=== PATIENT | female | born 1990 | race Two or more races ===

== ENCOUNTER 2018-10-24 10:15 | Observation (INO) | payer MEDICAID, OTHER ==
[~2018-10-24] VITALS: Ht 160 cm; Wt 65.8 kg
[2018-10-24] MEDS ORDERED: PREN-96 PO (12:15)
[2018-10-24] MEDS ORDERED: BETAMETHASONE ACET (6MG/ML) 5ML VIAL IM ONE (14:15)
== END 2018-10-24 14:35 | disposition home or self-care (01) | DRG 566 ==
LOC: LDRP 10:15
PROVIDERS: ADMIT Specialist; ATTEND Specialist
DX: O41.03X0 Oligohydramnios, third trimester, not applicable or unspecified (principal); O36.8130 Decreased fetal movements, third trimester, not applicable or unspecified; Z3A.35 35 weeks gestation of pregnancy
CPT/HCPCS: 59025; 76801; 76815; 76818; 81002; 96372; G0378; J0702

== ENCOUNTER 2018-10-25 19:33 | Observation (INO) | payer MEDICAID ==
[~2018-10-25] VITALS: Ht 160 cm; Wt 65.3 kg
[~2018-10-25 19:33] MED LIST: PREN-96 PO
[2018-10-25] MEDS ORDERED: BETAMETHASONE ACET (6MG/ML) 5ML VIAL IM ONE (19:45)
== END 2018-10-25 21:21 | disposition home or self-care (01) | DRG 566 ==
LOC: LDRP 19:33
PROVIDERS: ADMIT Specialist; ATTEND Specialist
DX: O99.113 Other diseases of the blood and blood-forming organs and certain disorders involving the immune mechanism complicating pregnancy, third trimester (principal); Z3A.38 38 weeks gestation of pregnancy
CPT/HCPCS: 59025; 76818; 81002; 96372; G0378

== ENCOUNTER 2018-10-26 17:05 | Observation (INO) | payer MEDICAID | END 2018-10-26 20:55 | disposition home or self-care (01) | DRG 861 | LOC: LDRP 17:05 | PROVIDERS: ADMIT Specialist; ATTEND Specialist | DX: Z34.93 Encounter for supervision of normal pregnancy, unspecified, third trimester (principal); Z3A.35 35 weeks gestation of pregnancy | CPT/HCPCS: 59025; 76818; 81002; G0378; 96361; 96366 ==

== ENCOUNTER 2018-10-27 09:55 | Observation (INO) | payer MEDICAID | END 2018-10-27 11:45 | disposition home or self-care (01) | DRG 566 | LOC: LDRP 09:55 | PROVIDERS: ADMIT Specialist; ATTEND Specialist | DX: O41.03X0 Oligohydramnios, third trimester, not applicable or unspecified (principal); Z3A.35 35 weeks gestation of pregnancy | CPT/HCPCS: 59025; 76818; 81002; G0378 ==

== ENCOUNTER 2018-10-30 15:03 | Observation (INO) | payer MEDICAID | END 2018-10-30 17:05 | disposition home or self-care (01) | DRG 566 | LOC: LDRP 15:03 | PROVIDERS: ADMIT Specialist; ATTEND Specialist | DX: O41.03X0 Oligohydramnios, third trimester, not applicable or unspecified (principal); Z3A.36 36 weeks gestation of pregnancy | CPT/HCPCS: 59025; 76818; 81002; G0378 ==

== ENCOUNTER 2018-10-31 12:45 | Observation (INO) | payer MEDICAID | END 2018-10-31 14:30 | disposition home or self-care (01) | DRG 566 | LOC: LDRP 12:45 | PROVIDERS: ADMIT Specialist; ATTEND Specialist | DX: O26.893 Other specified pregnancy related conditions, third trimester (principal); Z3A.32 32 weeks gestation of pregnancy | CPT/HCPCS: 59025; 76818; 81002; G0378 ==

== ENCOUNTER 2018-11-02 11:20 | Inpatient (IN) | payer MEDICAID ==
[~2018-11-02] VITALS: Ht 162.6 cm; Wt 65.3 kg
[2018-11-02] MEDS ORDERED: LACTATED RINGER'S 1,000 ML IV ONE ×2 (13:15)
[2018-11-02 13:52] LABS: Hematocrit 35.4 % (36.0-46.0); Hemoglobin 11.9 g/dL (12.2-16.2); Mean Corpuscular Hemoglobin 30.1 pg (28.0-32.0); Mean Corpuscular Hgb Conc. 33.6 g/dL (32.0-36.0); Mean Corpuscular Volume 89.5 fL (80.0-100.0); Platelet Count (auto) 227 10^3/uL (140-450); Red Blood Cells 3.95 10^6/uL (4.0-5.20); Red Cell Distribution Width 13.1 % (11.8-14.3); White Blood Cell 8.9 10^3/uL (4.4-10.8)
[2018-11-02 14:02] LABS: INR 0.83 (0.9-1.15); Partial Thromboplastin Time 26.2 sec (23.78-33.04)
[2018-11-02 14:07] LABS: Band Neutrophils % (manual) 0
[2018-11-02 14:08] LABS: Basophils % (manual) 0 (0.0-2.0); Blast Cells 0; Metamyelocytes % 0; Myelocytes % 0; Promyelocytes % 0; Reactive Lymphocytes 0
[2018-11-02 14:15] LABS: Albumin 2.5 g/dL (3.4-5.0); Calcium 8.5 mg/dL (8.5-10.1); Potassium 4.5 mmol/L (3.5-5.1)
[2018-11-02 14:19] LABS: BUN/Creatinine Ratio 22.8; Bilirubin, Total 0.2 mg/dL (0.2-1.0); Total Protein 6.6 g/dL (6.4-8.2)
[2018-11-02 14:21] LABS: Eosinophils % (manual) 1 (0-7); Lymphocytes % (manual) 20 (10.0-50.0); Monocytes % (manual) 11 (0-12)
[2018-11-02 15:34] LABS: Urine Bacteria FEW /hpf (None Seen); Urine Blood Negative /uL (Negative); Urine Specific Gravity 1.004 (1.001-1.035); Urine WBC 1 /hpf (0 - 5)
[2018-11-02 15:42] LABS: Alcohol, Urine < 3.0 mg/dL (0-5); Amphetamine Screen, Urine NEGATIVE (NEGATIVE); Barbiturate Scree,Urine NEGATIVE (NEGATIVE); Benzodiazephine Screen, Urine NEGATIVE (NEGATIVE); Cannabinoid Screen, Urine NEGATIVE (NEGATIVE); Cocaine Screen, Urine NEGATIVE (NEGATIVE); Opiate Scree,Urine NEGATIVE (NEGATIVE); Phencyclidine Screen, Urine NEGATIVE (NEGATIVE)
[2018-11-02] MEDS ORDERED: LACT. RINGERS/OXYTOCIN 20UNITS 1,000 ML IV SCH (15:51)
[2018-11-02] MEDS ORDERED: LIDOCAINE 2%HCL (LOCAL ANESTH.) INJ 20ML MDV ID ONE (16:00)
[2018-11-02] MEDS ORDERED: PHISODERM TOP SOLN 240ML BTL TOP PRN (16:00)
[2018-11-02] MEDS ORDERED: WITCH HAZEL-GLYCERIN PAD TOP PRN (16:00)
[2018-11-02] MEDS ORDERED: NALBUPHINE HCL 10 MG/1ml INJECTION IV PRN (16:00)
[2018-11-02] MEDS ORDERED: PENICILLIN G POT 5MIL/D5 50ML 50 ML IV ONE (16:00)
[2018-11-02] MEDS ORDERED: METHYLERGONOVINE MALEATE 0.2 MG/ML AMP IM PRN (16:00)
[2018-11-02] MEDS ORDERED: DERMOPLAST 60ML BOTTLE TOP PRN (16:00)
[2018-11-02] MEDS ORDERED: TERBUTALINE SULFATE 1 MG/ML 1ML VIAL SC ONE (16:41)
[2018-11-02] MEDS ORDERED: METOCLOPRAMIDE HCL 5MG/ml INJ 2ml VIAL ONE (17:14)
[2018-11-02] MEDS ORDERED: ONDANSETRON HCL 4 MG/2 ML VIAL ONE (17:15)
[2018-11-02] MEDS ORDERED: ePHEDrine SULFATE 50 MG/ML AMP ONE (17:15)
[2018-11-02] MEDS ORDERED: DEXAMETHASONE SOD PHOS 10MG/1ML VIAL INJ ONE (17:15)
[2018-11-02] MEDS ORDERED: MORPHINE SULF(PF) 0.5MG/ML 10ML VIAL ONE (17:16)
[2018-11-02] MEDS ORDERED: LIDOCAINE HCL 2 %PF INJ 10ML AMP IJ ONE (17:17)
[2018-11-02] MEDS ORDERED: fentaNYL CITRATE 100 MCG/2 ML VL ONE (17:18)
[2018-11-02] MEDS ORDERED: HYDROmorphone HCL 2 MG/ML VL IV PRN ×3 (17:45→19:15)
[2018-11-02] MEDS ORDERED: ePHEDrine SULFATE 50 MG/ML AMP IV PRN (17:45)
[2018-11-02] MEDS ORDERED: diphenhdrAMINE HCL 50 MG/1 ML VL IV PRN (17:45)
[2018-11-02] MEDS ORDERED: ONDANSETRON HCL 4 MG/2 ML VIAL IV ONE (17:45)
[2018-11-02] MEDS ORDERED: LABETALOL HCL 5 MG/ML 4ML SYRINGE IV PRN (17:45)
[2018-11-02] MEDS ORDERED: ONDANSETRON HCL 4 MG/2 ML VIAL IV PRN ×2 (17:45→19:15)
[2018-11-02] MEDS ORDERED: NALOXONE HCL 0.4 MG/ML VIAL IV PRN (17:45)
[2018-11-02] MEDS ORDERED: OXYTOCIN 10 UNIT/ML 10ML VIAL ONE (18:25)
[2018-11-02] MEDS ORDERED: ceFAZolin 1GM/50ML 50 ML IV SCH (19:15)
[2018-11-02] MEDS: LACTATED RINGER'S 1,000 ML IV SCH (19:58)
[2018-11-02] MEDS ORDERED: PENICILLIN G POTASSIUM 2,500,000 UNITS in D5W 5% 50 ML IV SCH (20:00)
--- NOTE | 2018-11-02 20:05 | NUR ---
Post Op for LDRP: Received patient from PACU via bed to room . Patient A/A/Ox4, abdominal binder and bilateral SCD's are in place, IV fluids placed on pump and infusing per order, incisional site dressing clean/dry/intact and Ya Catheter to gravity draining clear yellow urine. Incentive Spirometer at bedside and instruction on proper use with return demonstration done by patient.
[2018-11-02 20:10] VITALS: BP 126/73
[2018-11-02 21:30] VITALS: BP 125/88
[2018-11-02 22:30] VITALS: BP 127/76
[2018-11-02 23:30] VITALS: BP 135/93
[2018-11-03] VITALS (10 sets, daily range): BP systolic 107–142; BP diastolic 63–90
[2018-11-03] MEDS: KETOROLAC TROMETH 30 MG/ML 1ML VIAL IV SCH ×2 (00:08→06:02)
[2018-11-03] MEDS: LACTATED RINGER'S 1,000 ML IV SCH ×2 (00:13→11:20)
[2018-11-03] MEDS: ceFAZolin 1GM/50ML 50 ML IV SCH ×3 (03:43→19:47)
[2018-11-03 07:06] LABS: RPR Non Reactive (Non Reactive)
--- NOTE | 2018-11-03 08:36 | NUR ---
Ambulation: Patient OOB with standby assistance by RN. Patient ambulated to chair with steady gait. Clean gown provided and bed linen changed. Patient ambulated back to bed with steady gait and no distress noted.
[2018-11-03 09:10] LABS: Basophils # (auto) 0.1 uL; Basophils % (auto) 0.4 % (0.0-2.0); Eosinophils # (auto) 0 uL; Hematocrit 31.4 % (36.0-46.0); Hemoglobin 10.3 g/dL (12.2-16.2); Lymphocytes # (auto) 1.5 uL; Mean Corpuscular Hemoglobin 29.7 pg (28.0-32.0); Mean Corpuscular Hgb Conc. 32.9 g/dL (32.0-36.0); Mean Corpuscular Volume 90.3 fL (80.0-100.0); Monocytes # (auto) 0.7 uL; Monocytes % (auto) 3.8 % (0.0-12.0); Neutrophils # (auto) 16.6 uL; Neutrophils % (auto) 87.8 % (37.0-80.0); Platelet Count (auto) 231 10^3/uL (140-450); Red Blood Cells 3.47 10^6/uL (4.0-5.20); Red Cell Distribution Width 13.2 % (11.8-14.3); White Blood Cell 18.9 10^3/uL (4.4-10.8)
--- NOTE | 2018-11-03 09:47 | NUR ---
Ya catheter dc'd Ya dc'd with clean technique following deflation of balloon. Patient tolerated well with no complaints of pain. Continue care.
--- NOTE | 2018-11-03 11:36 | NUR ---
Dr. Meek reviewed blood sugars, orders received to discontinue blood sugar checks at this time.
[2018-11-03] MEDS ORDERED: HYDROcodone-ACET 5/325MG TAB PO PRN (12:00)
[2018-11-03] MEDS ORDERED: BISACODYL 10 MG RECT SUPP PR PRN (12:00)
[2018-11-03] MEDS ORDERED: SIMETHICONE 80 MG CHEWABLE TABLET PO PRN (12:00)
[2018-11-03] MEDS: IBUPROFEN 800 MG TAB PO PRN (17:22)
--- NOTE | 2018-11-03 19:00 | NUR ---
DRESSING TO LOWER ABDOMINAL INCISION REMOVED DRESSING TO LOWER ABDOMINAL INCISION REMOVED. INCISION CLEAN, DRY AND WELL APPROXIMATED WITH 12 PAOLA PRESENT AND INTACT. SITE LEFT OPEN TO AIR. Addendum: 11/03/18 at 2030 by Rosa Isela Keyes RN Amended: Links added.
[2018-11-03] MEDS: HYDROcodone-ACET 5/325MG TAB PO PRN ×2 (19:47→23:46)
[2018-11-04] MEDS: IBUPROFEN 800 MG TAB PO PRN ×3 (01:44→19:26)
[2018-11-04 02:50] VITALS: BP 112/78
[2018-11-04] MEDS: HYDROcodone-ACET 5/325MG TAB PO PRN ×4 (04:42→20:28)
[2018-11-04 06:35] VITALS: BP 130/84
[2018-11-04 06:52] LABS: Basophils # (auto) 0.1 uL; Basophils % (auto) 0.4 % (0.0-2.0); Eosinophils # (auto) 0 uL; Eosinophils % (auto) 0.1 % (0.0-7.0); Hematocrit 27.8 % (36.0-46.0); Hemoglobin 9.3 g/dL (12.2-16.2); Lymphocytes # (auto) 2.6 uL; Lymphocytes % (auto) 17.6 % (10.0-50.0); Mean Corpuscular Hemoglobin 30.1 pg (28.0-32.0); Mean Corpuscular Hgb Conc. 33.4 g/dL (32.0-36.0); Mean Corpuscular Volume 90.1 fL (80.0-100.0); Monocytes # (auto) 1.1 uL; Monocytes % (auto) 7.5 % (0.0-12.0); Neutrophils # (auto) 10.9 uL; Neutrophils % (auto) 74.4 % (37.0-80.0); Platelet Count (auto) 217 10^3/uL (140-450); Red Blood Cells 3.09 10^6/uL (4.0-5.20); Red Cell Distribution Width 13.2 % (11.8-14.3); White Blood Cell 14.6 10^3/uL (4.4-10.8)
[2018-11-04] MEDS ORDERED: DOCUSATE CALCIUM 240 MG CAP PO SCH (10:00)
[2018-11-04 11:00] VITALS: BP 108/64
[2018-11-04 15:15] VITALS: BP 126/82
--- NOTE | 2018-11-04 18:10 | NUR ---
Received bedside report from Millie Louis RN, [facility].
--- NOTE | 2018-11-04 18:30 | NUR ---
Initiated assessment, reviewed POC and discussed goals. Pt verbalized understanding, questions answered. Pt states she is at 4/10 pain and that is tolerable. Left hand saline lock discontinued, catheter in tact, bandage applied, pt tolerated well. Pt stated she will ambulate hallway 4 "laps" and then is requesting Motrin. Family support at bedside. See flow sheet for complete data, and MAR for future medication administration.
[2018-11-04 19:00] VITALS: BP 141/87
[2018-11-04 23:15] VITALS: BP 139/92
--- NOTE | 2018-11-05 00:15 | NUR ---
Patient vomited 100cc's as reported by pt. Pt states her pain is so bad she through up. Crackers and water provided and pain medication administered. Patient educated and encouraged to ambulate and drink plenty of water. Pt also encouraged to accept a ducolox suppository to aid with her abdominal discomfort. Pt declined and refused to ambulate and to take suppository. Pt stated she was tired and wanted to lay down. this RN verbalized understanding.
[2018-11-05] MEDS: HYDROcodone-ACET 5/325MG TAB PO PRN ×2 (00:17→04:35)
[2018-11-05 03:30] VITALS: BP 116/77
[2018-11-05] MEDS ORDERED: TUBERCULIN PPD 5 UNIT/0.1 ML ID ONE (06:15)
--- NOTE | 2018-11-05 06:28 | NUR ---
C/S Staple Removal DC Note: Orders received to remove kim. Kim removed using sterile technique by Dale LIPSCOMB shuttle route vehicle operator. Lower abdominal incision approximated, no drainage/redness/inflammation visualized at time of removal. Steri-strips applied. Education provided on incisional care. Patient verbalized understanding and willingness to comply to instructions/teaching provided. Discharge: Discharge instructions given as ordered. Pt encouraged to follow up with ELEVATOR INSPECTOR as instructed. All questions and concerns addressed. Patient verbalized understanding. Medication reconciliation completed and copy given to patient. Patient refused influenza and t-dap vaccine. Patient encouraged to prepare to depart unit.
[2018-11-05 06:30] VITALS: BP 126/90
--- NOTE | 2018-11-05 08:50 | NUR ---
Discharge: Patient taken to vehicle via ambulation with all personal belongings, accompanied by staff and family member. No distress noted at time of departure, no adverse changes in status since initial assessment.
[2018-11-05 09:32] LABS: Rubella Antibodies, IgG 8.08 index (Immune >0.99)
== END 2018-11-05 08:50 | disposition home or self-care (01) | DRG 540 ==
LOC: LDRP 11:20 → UNDOADMOB 11:20 → INTOOBSV 11:20 → OBSVTOIN 11:20 → LDRP 15:00 → OBSVTOIN 15:00 → LDRP 20:41
PROVIDERS: ADMIT Specialist; ATTEND Specialist
PROC: 10D00Z1 Extraction of Products of Conception, Low, Open Approach (ICD-10-PCS; principal; 2018-11-02 18:05)
DX: O36.5930 Maternal care for other known or suspected poor fetal growth, third trimester, not applicable or unspecified (principal); O60.14X0 Preterm labor third trimester with preterm delivery third trimester, not applicable or unspecified; O41.03X0 Oligohydramnios, third trimester, not applicable or unspecified; Z3A.36 36 weeks gestation of pregnancy; Z37.0 Single live birth; O99.824 Streptococcus B carrier state complicating childbirth
CPT/HCPCS: 36415; 51702; 59025; 76818; 80053; 80307; 81001; 81002; 85007; 85025; 85027; 85610; 85730; 86592; 86762; 86850; 86900; 86901; 94762; 96361; 96365; 96366; 96375; G0378; J0690; J1100; J1885; J2405; J2540; J2590; J7060

== ENCOUNTER 2019-12-05 04:11 | Inpatient (IN) | payer MEDICAID ==
[2019-12-05] VITALS (13 sets, daily range): BP systolic 110–127; BP diastolic 61–81
[~2019-12-05] VITALS: Ht 162.6 cm; Wt 68.0 kg
[2019-12-05] MEDS ORDERED: LACTATED RINGER'S 1,000 ML IV SCH (04:17)
[2019-12-05 05:01] LABS: Basophils # (auto) 0 10 ^3/uL (0-0.2); Basophils % (auto) 0.5 % (0.0-2.0); Eosinophils # (auto) 0.1 10 ^3/uL (0-0.8); Eosinophils % (auto) 0.9 % (0.0-7.0); Hematocrit 33.6 % (36.0-46.0); Hemoglobin 11.6 g/dL (12.2-16.2); Lymphocytes # (auto) 2.5 10 ^3/uL (0.4-5.4); Lymphocytes % (auto) 31.4 % (10.0-50.0); Mean Corpuscular Hemoglobin 30.1 pg (28.0-32.0); Mean Corpuscular Hgb Conc. 34.6 g/dL (32.0-36.0); Mean Corpuscular Volume 87.1 fL (80.0-100.0); Monocytes # (auto) 0.8 10 ^3/uL (0-1.3); Monocytes % (auto) 9.6 % (0.0-12.0); Neutrophils # (auto) 4.6 10 ^3/uL (1.6-8.6); Neutrophils % (auto) 57.6 % (37.0-80.0); Nucleated Red Blood Cells % 0.1 %; Platelet Count (auto) 207 10^3/uL (140-450); Red Blood Cells 3.86 10^6/uL (4.0-5.20); Red Cell Distribution Width 13.8 % (11.8-14.3)
[2019-12-05 05:16] LABS: Urine Bacteria FEW /hpf (None Seen); Urine Blood Negative /uL (Negative); Urine Mucus FEW (None Seen); Urine Specific Gravity 1.024 (1.001-1.035); Urine WBC 2 /hpf (0 - 5)
[2019-12-05 05:18] LABS: INR 0.91 (0.9-1.15); Partial Thromboplastin Time 25.4 sec (23.64-32.05)
[2019-12-05 06:37] LABS: Albumin 2.7 g/dL (3.4-5.0); Calcium 8.4 mg/dL (8.5-10.1); Potassium 3.8 mmol/L (3.5-5.1)
[2019-12-05 06:41] LABS: BUN/Creatinine Ratio 22.7; Bilirubin, Total 0.3 mg/dL (0.2-1.0); Total Protein 6.6 g/dL (6.4-8.2)
[2019-12-05] MEDS ORDERED: TETRACAINE 1% INJ 2 ML VIAL IJ ONE (07:35)
[2019-12-05] MEDS ORDERED: MORPHINE SULF(PF) 0.5MG/ML 10ML VIAL ONE (07:40)
[2019-12-05] MEDS ORDERED: ePHEDrine SULFATE 50 MG/ML AMP ONE (07:43)
[2019-12-05] MEDS ORDERED: ceFAZolin 1GM VL ONE (07:43)
[2019-12-05] MEDS ORDERED: oxyTOCIN 10 UNIT/ML 10ML VIAL ONE (07:44)
[2019-12-05] MEDS ORDERED: LACT. RINGERS/OXYTOCIN 20UNITS 1,000 ML IV SCH (07:51)
[2019-12-05] MEDS ORDERED: ceFAZolin 1GM/50ML 50 ML IV SCH (08:00)
[2019-12-05] MEDS ORDERED: MIDAZOLAM HCL 1MG/1ML-2 ML VIAL ONE (08:22)
[2019-12-05] MEDS ORDERED: NALOXONE HCL 0.4 MG/ML VIAL IV PRN ×2 (08:45)
[2019-12-05] MEDS ORDERED: HYDROmorphone HCL 2 MG/ML VL IV PRN (08:45)
[2019-12-05] MEDS ORDERED: KETOROLAC TROMETH 15 mg/ml 1ML VL IV PRN (08:45)
[2019-12-05] MEDS ORDERED: METOCLOPRAMIDE HCL 5MG/ml INJ 2ml VIAL IV PRN (08:45)
[2019-12-05] MEDS ORDERED: ePHEDrine SULFATE 50 MG/ML AMP IV PRN (08:45)
[2019-12-05] MEDS ORDERED: diphenhdrAMINE HCL 50 MG/1 ML VL IV PRN (08:45)
[2019-12-05] MEDS ORDERED: ONDANSETRON HCL 4 MG/2 ML VIAL IV PRN ×2 (08:45)
--- NOTE | 2019-12-05 09:00 | NUR ---
Bottle-feeding Education: Patient encouraged to breastfeed. Benefits of and the risk of providing formula to was discussed. Patient verbalized understanding of the benefits and is aware of risk and insists on bottle-feeding. Formula provided and instruction on formula preparation from the [facility] booklet reviewed with patient.
--- NOTE | 2019-12-05 09:30 | NUR ---
Received report via telephone from VINITA Lazcano RN
--- NOTE | 2019-12-05 09:35 | NUR ---
Pt arrived to room 7a via own bed. All monitors placed and head to toe assessment initiated with CAPACITY PLANNER Neno at bedside. Pt states pain 4/10, dressing clean, dry intact, lochia scant, and fundus -1u. LR running to right wrist 20 g, no infiltration noted or swelling or pain. Lungs clear, Ya catheter draining to gravity with clear pale yellow urine. RR is 18. See flowsheet for complete data.
[2019-12-05] MEDS: ceFAZolin 1GM/50ML 50 ML IV SCH ×2 (16:18→23:25)
[2019-12-05] MEDS: ONDANSETRON HCL 4 MG/2 ML VIAL IV PRN (17:52)
[2019-12-05 20:10] LABS: Basophils # (auto) 0 10 ^3/uL (0-0.2); Basophils % (auto) 0.3 % (0.0-2.0); Eosinophils # (auto) 0 10 ^3/uL (0-0.8); Eosinophils % (auto) 0.4 % (0.0-7.0); Hematocrit 30.7 % (36.0-46.0); Hemoglobin 10.4 g/dL (12.2-16.2); Lymphocytes # (auto) 1.7 10 ^3/uL (0.4-5.4); Mean Corpuscular Hemoglobin 29.7 pg (28.0-32.0); Mean Corpuscular Hgb Conc. 34.1 g/dL (32.0-36.0); Mean Corpuscular Volume 87.2 fL (80.0-100.0); Monocytes # (auto) 0.7 10 ^3/uL (0-1.3); Monocytes % (auto) 6.8 % (0.0-12.0); Neutrophils # (auto) 7.4 10 ^3/uL (1.6-8.6); Neutrophils % (auto) 75.5 % (37.0-80.0); Platelet Count (auto) 152 10^3/uL (140-450); Red Blood Cells 3.52 10^6/uL (4.0-5.20); White Blood Cell 9.8 10^3/uL (4.4-10.8)
--- NOTE | 2019-12-05 21:00 | NUR ---
Ambulation: Patient ambulated to chair with RN with steady gait. pericare done. Clean gown provided and bed linen changed. Patient ambulated back to bed with steady gait and no distress noted.
[2019-12-06 03:00] VITALS: BP 120/78
[2019-12-06] MEDS: ONDANSETRON HCL 4 MG/2 ML VIAL IV PRN ×2 (03:02→07:27)
[2019-12-06] MEDS: MORPHINE SULFATE 4 MG/ML SYR/VIAL IV PRN ×2 (03:03→07:27)
[2019-12-06] MEDS ORDERED: ACETAMINOPHEN IV 1000 MG/100ML (10MG/ML) IV ONE (03:30)
[2019-12-06 04:06] LABS: RPR Non Reactive (Non Reactive)
--- NOTE | 2019-12-06 04:50 | NUR ---
FOLY REMOVED. PT TOLERATED WELL. EZRA CARE DONE.
[2019-12-06 06:13] LABS: Basophils # (auto) 0 10 ^3/uL (0-0.2); Basophils % (auto) 0.2 % (0.0-2.0); Eosinophils # (auto) 0 10 ^3/uL (0-0.8); Eosinophils % (auto) 0.3 % (0.0-7.0); Hematocrit 30.2 % (36.0-46.0); Hemoglobin 10.6 g/dL (12.2-16.2); Lymphocytes # (auto) 1.3 10 ^3/uL (0.4-5.4); Lymphocytes % (auto) 14.6 % (10.0-50.0); Mean Corpuscular Hemoglobin 30.3 pg (28.0-32.0); Mean Corpuscular Hgb Conc. 35.1 g/dL (32.0-36.0); Mean Corpuscular Volume 86.5 fL (80.0-100.0); Monocytes # (auto) 0.6 10 ^3/uL (0-1.3); Monocytes % (auto) 7.1 % (0.0-12.0); Neutrophils # (auto) 6.9 10 ^3/uL (1.6-8.6); Neutrophils % (auto) 77.8 % (37.0-80.0); Nucleated Red Blood Cells % 0.1 %; Platelet Count (auto) 155 10^3/uL (140-450); Red Cell Distribution Width 13.8 % (11.8-14.3); White Blood Cell 8.8 10^3/uL (4.4-10.8)
[2019-12-06 06:30] VITALS: BP 125/76
--- NOTE | 2019-12-06 07:10 | NUR ---
Dressing to lower abdominal incision removed. Vazquez intact, well approximated, incision left open to air.
[2019-12-06] MEDS: ceFAZolin 1GM/50ML 50 ML IV SCH (07:36)
[2019-12-06] MEDS ORDERED: HYDROcodone-ACET 5/325MG TAB PO PRN ×2 (09:15)
[2019-12-06] MEDS: DOCUSATE SOD 100 MG CAP PO SCH ×2 (10:08→22:26)
[2019-12-06] MEDS: IBUPROFEN 800 MG TAB PO PRN ×2 (10:08→17:38)
[2019-12-06 15:00] VITALS: BP 115/83
[2019-12-06 18:55] VITALS: BP 112/69
--- NOTE | 2019-12-06 19:46 | NUR ---
DR ARANDA CALLS INTO [facility]. SBAR DISCUSSED INCLUDING PT DENIES PASSING GAS AT THIS TIME. ORDER RECEIVED TO CONTINUE WITH CLEAR LIQUID DIET UNTIL PT PASSES GAS, THEN ADVANCE TO SOFT DIET. WILL CARRY OUT ORDERS.
[2019-12-06 23:00] VITALS: BP 111/73
[2019-12-07 03:30] VITALS: BP 125/74
[2019-12-07] MEDS: IBUPROFEN 800 MG TAB PO PRN ×2 (05:28→21:31)
[2019-12-07 06:40] VITALS: BP 108/66
[2019-12-07] MEDS: DOCUSATE SOD 100 MG CAP PO SCH ×2 (10:42→21:31)
[2019-12-07 10:45] VITALS: BP 113/58
[2019-12-07] MEDS: SIMETHICONE 80 MG CHEWABLE TABLET PO PRN ×2 (13:20→21:31)
[2019-12-07 15:00] VITALS: BP 110/63
[2019-12-07] MEDS: BISACODYL 10 MG RECT SUPP PR PRN (16:37)
[2019-12-07 19:00] VITALS: BP 130/77
--- NOTE | 2019-12-07 22:23 | NUR ---
IV removal IV DC'd with patients request with clean sterile technique, catheter fully intact. Pressure dressing applied to site. Patient tolerated well. IV taken out before patient showered. NOTE:
[2019-12-07 23:00] VITALS: BP 135/77
[2019-12-08 03:00] VITALS: BP 128/86
[2019-12-08] MEDS: IBUPROFEN 800 MG TAB PO PRN ×2 (05:02→13:59)
[2019-12-08 06:45] VITALS: BP 115/73
--- NOTE | 2019-12-08 06:55 | NUR ---
Dr Nagel called, given update on PT status regarding discharge. PT has not had a BM, having flatus and on a clear diet. Diet was changed to regular for today. Dr Nagel wants PT to be evaluated tonight and possibly discharged by Cotton Ginner if PT has a BM, if not she will discharged PT tomorrow.
[2019-12-08] MEDS: BISACODYL 10 MG RECT SUPP PR PRN (10:45)
[2019-12-08] MEDS: DOCUSATE SOD 100 MG CAP PO SCH (10:46)
[2019-12-08 10:53] VITALS: BP 128/73
[2019-12-08 15:15] VITALS: BP 130/81
--- NOTE | 2019-12-08 15:30 | NUR ---
REPORT GIVEN TO SABINE HAYES
--- NOTE | 2019-12-08 18:50 | NUR ---
SBAR given to Rex by charge nurse Charis HAYES. Update on patient status given. Orders received to d/c patient home and to follow up with as scheduled. Will follow orders.
[2019-12-08 19:20] VITALS: BP 131/93
--- NOTE | 2019-12-08 19:20 | NUR ---
Discharge: Discharge instructions given as ordered. Pt encouraged to follow up with WAITER/WAITRESS SECOND CLASS as instructed. All questions and concerns addressed. Patient verbalized understanding. Medication reconciliation completed and copy given to patient. Patient given prescription at this time. Patient encouraged to prepare to depart unit.
[2019-12-08 19:25] VITALS: BP 131/93
--- NOTE | 2019-12-08 19:25 | NUR ---
Discharge: Patient ambulates to vehicle as requested per patient with all personal belongings, accompanied by staff, father of baby and in carseat. No distress noted at time of departure, no adverse changes in status since initial assessment.
== END 2019-12-08 19:25 | disposition home or self-care (01) | DRG 540 ==
LOC: LDRP 04:11
PROVIDERS: ADMIT Obstetrics & Gynecology; ATTEND Obstetrics & Gynecology
PROC: 10D00Z1 Extraction of Products of Conception, Low, Open Approach (ICD-10-PCS; principal; 2019-12-06)
PROC: 0UL70CZ Occlusion of Bilateral Fallopian Tubes with Extraluminal Device, Open Approach (ICD-10-PCS; 2019-12-06)
DX: O34.211 Maternal care for low transverse scar from previous cesarean delivery (principal); Z30.2 Encounter for sterilization; Z37.0 Single live birth; Z3A.39 39 weeks gestation of pregnancy
CPT/HCPCS: 36415; 59025; 80053; 81001; 84112; 85025; 85610; 85730; 86592; 86850; 86900; 86901; 96365; 96366; 96374; 96375; G0378; J0131; J0690; J2250; J2405; J2590